=== PATIENT | male | born 1970 | race Caucasian/White ===

== ENCOUNTER 2017-06-01 18:59 | Emergency (ER) | payer SELFPAY ==
--- NOTE | 2017-06-01 20:56 | RAD ---
Indication: Chronic LEFT ankle pain with dorsi and plantar flexion. Exacerbation post fall today with lateral pain. Comparison: No relevant prior exams available [place] [facility] [place]. Technique: AP, mortise, and lateral views LEFT ankle. Report: Normal articular alignment. No cortical disruption or suspicious trabecular irregularity to suggest fracture. Negative for osteochondral lesion. Os trigonum and moderate plantar fascia origin bone spur. Mild soft tissue swelling most prominent over the lateral malleolus. IMPRESSION: Mild lateral soft tissue swelling without additional acute radiographic abnormality.
--- NOTE | 2017-06-01 21:12 | UC ---
Lower Extremity/Ankle HPI - HPI Summary HPI Summary: 47 y/o male presents to the urgent care c/o Left ankle pain after he tripped in a wet ramp at home last night. Pt reports he has a defect in his left ankle and has Hx of arthritis and tendonitis. He frequently slips and injures his left ankle. Pt states pain is 3/10 now w/ movement w/o any radiation. Pt denies SOB, numbness, tingling, chest pain, N/V/D. He is able to bear weight. When told about his elevated BP, he states he has Hx of HTN but stopped taking medication long time ago - History of Current Complaint Hx Obtained From: Patient Onset/Duration: Sudden Onset, Lasting Days, Still Present Severity Initially: Moderate Severity Currently: Moderate Pain Intensity: 3 Pain Scale Used: 0-10 Numeric Aggravating Factor(s): Other - rotating left ankle Alleviating Factor(s): Rest Able to Bear Weight: Yes - Risk Factors Gout Risk Factors: Negative DVT Risk Factors: Negative Septic Arthritis Risk Factor: Negative <Ginny Prather - Last Filed: 06/03/17 17:18> <Jewell Bonilla - Last Filed: 06/03/17 20:48> - History of Current Complaint Chief Complaint: UCLowerExtremity Stated Complaint: LT ANKLE PAIN Time Seen by Provider: 06/01/17 21:11 - Allergies/Home Medications Allergies/Adverse Reactions: Allergies Allergy/AdvReac Type Severity Reaction Status Date / Time Penicillins [PCN] Allergy Unknown Verified 06/01/17 19:32 Reaction Details Home Medications: Home Medications Ibuprofen [Advil] 800 mg PO 06/01/17 [History] PMH/Surg Hx/FS Hx/Imm Hx Previously Healthy: Yes Cardiovascular History: Hypertension - Surgical History Surgical History: None - Family History Family History: Breast Cancer, cirrhosis - Social History Occupation: Employed Full-time Lives: With Family Alcohol Use: Occasionally Substance Use Type: None Smoking Status (MU): Heavy Every Day Tobacco Smoker Type: Cigarettes <Ginny Prather - Last Filed: 06/03/17 17:18> Review of Systems Constitutional: Negative Skin: Negative Eyes: Negative ENT: Negative Respiratory: Negative Cardiovascular: Negative Gastrointestinal: Negative Genitourinary: Negative Motor: Negative Neurovascular: Negative Musculoskeletal: Other: - Left ankle pain w/ swelling Neurological: Negative Psychological: Negative All Other Systems Reviewed And Are Negative: Yes <Ginny Prather - Last Filed: 06/03/17 17:18> Physical Exam Triage Information Reviewed: Yes Appearance: Well-Appearing, No Pain Distress, Well-Nourished, Obese Vital Signs: Initial Vital Signs Temp 98.6 F 06/01/17 19:27 Pulse 93 06/01/17 19:27 Resp 18 06/01/17 19:27 BP 165/108 06/01/17 19:27 Pulse Ox 97 06/01/17 19:27 Vital Signs Reviewed: Yes Eye Exam: Normal Eyes: Positive: Conjunctiva Clear - PERRLA, EOMI, fundi grossly normal ENT Exam: Normal ENT: Positive: Normal ENT inspection, Hearing grossly normal, Pharynx normal, TMs normal Dental Exam: Normal Neck exam: Normal Neck: Positive: Supple, Nontender, No Lymphadenopathy Respiratory Exam: Normal Respiratory: Positive: Chest non-tender, Lungs clear, Normal breath sounds Cardiovascular Exam: Normal Cardiovascular: Positive: RRR, No Murmur, Pulses Normal, Brisk Capillary Refill Abdominal Exam: Normal Abdomen Description: Positive: Nontender, Soft. Negative: CVA Tenderness (R), CVA Tenderness (L) Bowel Sounds: Positive: Present Musculoskeletal: Positive: Strength Intact, Other: - Left lateral malleolus w/ moderate swelling, mild tenderness on palpation, mild erythema observe, Pt able to bear weight, Limited ROM due to pain. Positive pulses, brisk capillary refill , sensation WNL, positive reflexes. <Ginny Prather - Last Filed: 06/03/17 17:18> Vital Signs: Initial Vital Signs Temp 98.6 F 06/01/17 19:27 Pulse 93 06/01/17 19:27 Resp 18 06/01/17 19:27 BP 165/108 06/01/17 19:27 Pulse Ox 97 06/01/17 19:27 <Jewell Bonilla - Last Filed: 06/03/17 20:48> Lower Extremity Course/Dx - Course Course Of Treatment: 47 y/o male presents to the urgent care c/o Left ankle pain after he tripped in a wet ramp at home last night. Pt reports he has a defect in his left ankle and has Hx of arthritis and tendonitis. He frequently slips and injures his left ankle. Pt states pain is 3/10 now w/ movement w/o any radiation. Pt denies SOB, numbness, tingling, chest pain, N/V/ D. He is able to bear weight.When told about his elevated BP, he states he has Hx of HTN but stopped taking medication long time ago. Hx obtained. PE abnormal findings:Left lateral malleolus w/ moderate swelling, mild tenderness on palpation, mild erythema observe, Pt able to bear weight, Limited ROM due to pain. Positive pulses, brisk capillary refill, sensation WNL, positive reflexes. Left ankle Xray ordered. Impression: mild lateral soft tissue swelling w/o any acute radiographic abnormality. Most likely an ankle sprain. Pt immobilized with gel ankle splint, given crutches, Rx Ibuprofen Po to decrease swelling and pain. Pt advised RICE and to f/u with PCP on orthopedic in 1 week. Pt understood and agreed and left the clinic ambulating w/ the help of crutches. -Uncontrolled HTN: Pt educated in the importance of taking HTN medication, advised to decrease salt in his diet, f/u with PCP as soon as possible for further management and treatment. Pt understood and agreed. - Differential Dx/Diagnosis Differential Diagnosis/HQI/PQRI: Contusion, Dislocation, Fracture (Closed), Sprain, Strain, Tendonitis Provider Diagnoses: 1- Left ankle sprain. 2-Uncontrolled HTN <Ginny Prather - Last Filed: 06/03/17 17:18> Discharge <Ginny Prather - Last Filed: 06/03/17 17:18> <Jewell Bonilla - Last Filed: 06/03/17 20:48> - Discharge Plan Condition: Stable Disposition: HOME Prescriptions: Ibuprofen TAB* [Motrin TAB* 800 MG] 800 mg PO Q6H #30 tab Patient Education Materials: Ankle Sprain (ED), Low Sodium Diet (ED), Hypertension (ED) Referrals: [facility] [place] [facility]IAN REFERRAL [Outside] - 1 Week Nimesh Fine MD [Medical Doctor] - If Needed Additional Instructions: please take ibuprofen after meals to alleviate pain and swelling. Rest, apply ice and keep ankle immobilized. Please f/u with a PCP from the [facility] [place] referral line for further management and treatment. If symptoms do not improve please f/ u with orthopedic DR Fine. Please decrease salt in your diet and monitor your blood pressure and f/u with your PCP for further evaluation and treatment in your elevated blood pressure Attestation Statement User Type: Provider - I was available for consult. This patient was seen by the advanced practice provider. The patient was not presented to, seen by, or examined by me.-Christy <Jewell Bonilla - Last Filed: 06/03/17 20:48>
[2017-06-01] MEDS ORDERED: Ibuprofen TAB* 400 MG PO ONE (21:24)
[2017-06-01 21:50] VITALS: BP 181/118
== END 2017-06-01 21:53 | disposition home or self-care (01) ==
LOC: UCEAST 18:59
DX: S93.402A Sprain of unspecified ligament of left ankle, initial encounter (principal); W01.0XXA Fall on same level from slipping, tripping and stumbling without subsequent striking against object, initial encounter; Y93.9 Activity, unspecified; Y92.008 Other place in unspecified non-institutional (private) residence as the place of occurrence of the external cause; I10 Essential (primary) hypertension; E66.9 Obesity, unspecified; Z88.0 Allergy status to penicillin; F17.210 Nicotine dependence, cigarettes, uncomplicated
CPT/HCPCS: 99203; A9270-GY; G0463